=== PATIENT | female | born 1980 | race Caucasian/White ===

== ENCOUNTER → 2017-10-31 | Day surgery (SDC) | payer OTHER ==
--- NOTE | 2017-11-02 10:51 | PATH ---
Surgical Pathology Report Patient Name: JULIO CÉSAR THEODORE [facility]. Rec. #: [id number] /Age/Gender: 1980 (Age: 37) / F Account: [id number] Location: [facility] Taken: 10/31/2017 Received: 10/31/2017 Reported: 11/02/2017 Physicians: Dmitri Parker M.D. Specimen(s) Received LEFT BREAST 3.00 Clinical History Palpable mass Ultrasound findings: Suspicious Final Diagnosis LEFT BREAST, 3:00, BIOPSY: BREAST TISSUE WITH FAT NECROSIS, CHRONIC INFLAMMATORY CELLS INFILTRATE, AND HISTIOCYTIC REACTION. Electronically Signed Tasia Ott M.D. Gross Description Received in formalin labeled "left 3:00," are 7 muhammad-yellow, cylindrical portions of fibroadipose tissue ranging from 0.7-1.3 cm in length and averaging 0.1 cm in diameter. The specimens are submitted in toto in one cassette. Total formalin fixation time: Between 6-10 hours 10/31/201710/31/2017
== END | disposition home or self-care (01) ==
LOC: JRADUS-SUR 10:23
PROVIDERS: ATTEND Student in an Organized Health Care Education/Training Program
PROC: 0HBU3ZX Excision of Left Breast, Percutaneous Approach, Diagnostic (ICD-10-PCS; principal; 2017-10-31)
DX: D48.62 Neoplasm of uncertain behavior of left breast (principal)
CPT/HCPCS: 19083; 87899; 88305-TC; A4648